=== PATIENT | male | born 1960 | race American Indian/Alaskan Native ===

== ENCOUNTER 2020-08-05 12:25 | Outpatient (CLI) | payer OTHER ==
--- NOTE | 2020-08-05 14:40 | XRay Report ---
LUMBAR SPINE 3 VIEWS INDICATION / CLINICAL INFORMATION: BACK PAIN. COMPARISON: None available. FINDINGS: No significant skeletal abnormality. Alignment is normal. Signer Name: Boby Blue MD FACR Signed: 08/05/2020 2:35 PM Workstation Name: [id number]
--- NOTE | 2020-08-05 14:41 | XRay Report ---
LEFT HIP 3 VIEWS INDICATION / CLINICAL INFORMATION: LEFT HIP PAIN. COMPARISON: None available. 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 Signer Name: Boby Blue MD FACR Signed: 08/05/2020 2:36 PM Workstation Name: [id number]
== END 2020-08-05 12:26 | disposition home or self-care (01) ==
LOC: XRAY 12:25
PROVIDERS: ATTEND Internal Medicine
DX: M16.12 Unilateral primary osteoarthritis, left hip (principal); M54.5 Low back pain
CPT/HCPCS: 72100